=== PATIENT | male | born 1985 | race Caucasian/White ===

== ENCOUNTER 2021-11-07 05:36 | Emergency (ER) | payer OTHER ==
[~2021-11-07] VITALS: Ht 190.5 cm; Wt 127.3 kg
[2021-11-07 05:41] VITALS: TEMP 97.9
[2021-11-07] MEDS ORDERED: NORCO 325 MG-51 TAB PO (07:20)
[2021-11-07 07:36] VITALS: BP 121/76; PULSE 81
== END 2021-11-07 07:36 | disposition home or self-care (01) ==
LOC: COL.ER 05:36
DX: S43.005A Unspecified dislocation of left shoulder joint, initial encounter (principal); S06.0X1A Concussion with loss of consciousness of 30 minutes or less, initial encounter; S20.212A Contusion of left front wall of thorax, initial encounter; Z28.311 Partially vaccinated for COVID-19; W10.8XXA Fall (on) (from) other stairs and steps, initial encounter
CPT/HCPCS: J2250; J3010; J7030; Q9967